=== PATIENT | female | born 1975 | race Caucasian/White ===

== ENCOUNTER 2018-01-21 18:00 | Inpatient (IN) | payer OTHER ==
--- NOTE | 2018-01-21 19:27 | HP ---
CIWA Score - CIWA Score Nausea/Vomitin Muscle Tremors: 3 Anxiety: 3 Agitation: 3 Paroxysmal Sweats: 2 Orientation: 0-Oriented Tacttile Disturbances: 2-Mild Itch/Numbness/Burn Auditory Disturbances: 2-Mild Harshness/Frighten Visual Disturbances: 1-Very Mild Sensitivity Headache: 2-Mild CIWA-Ar Total Score: 21 Admission ROS BHS - HPI Chief Complaint: i need help to stop drinking alcohol and marijuana Allergies/Adverse Reactions: Allergies Allergy/AdvReac Type Severity Reaction Status Date / Time No Known Drug Allergies Allergy Verified 01/21/18 19:30 canned pears Allergy Intermediate Swelling Uncoded 01/21/18 19:30 History of Present Illness: this 42 years old female with alcohol and marijuana dependence,seeking detox, withdrawal symptom,last detox 06/16/14 to 06/08/14 seizure last 01/14/18 s/p craniotomy post trauma in 2013 [facility] longest period of sobriety 8 months nicotine dependence Exam Limitations: No Limitations - Review of Systems Constitutional: Loss of Appetite, Malaise, Night Sweats, Changes in sleep EENT: reports: Nose Congestion, Other (s/p craniotomy right post trauma) Respiratory: reports: No Symptoms reported Cardiac: reports: No Symptoms Reported GI: reports: Nausea, Poor Fluid Intake, Abdominal cramping : reports: No Symptoms Reported Musculoskeletal: reports: Back Pain, Muscle Pain Integumentary: reports: Dryness Neuro: reports: Headache, Tremors Endocrine: reports: No Symptoms Reported Hematology: reports: No Symptoms Reported Psychiatric: reports: No Sypmtoms Reported, Judgement Intact, Mood/Affect Appropiate, Orientated x3 Patient History - Patient Medical History Hx Anemia: No Hx Asthma: No Hx Chronic Obstructive Pulmonary Disease (COPD): No Hx Cancer: No Hx Cardiac Disorders: No Hx Hypertension: No Hx Hypercholesterolemia: No Hx Pacemaker: No HX Cerebrovascular Accident: No Hx Seizures: Yes (LAST SEIZURE WAS 1 WK AGO) Hx Dementia: No Hx Diabetes: No Hx Gastrointestinal Disorders: No Hx Liver Disease: No Hx Genitourinary Disorders: No Hx Sexually Transmitted Disorders: No Hx Renal Disease (ESRD): No Hx Human Immunodeficiency Virus (HIV): No (last 2007 negative) Hx Hepatitis C: No Hx Depression: Yes (no med,did not want to wait) Hx Suicide Attempt: No Hx Bipolar Disorder: No Hx Schizophrenia: No - Patient Surgical History Past Surgical History: Yes Other Surgical History: SURGERY FOR SDH X 2 SEC. TO FALL IN 01/2013 Anesthesia Reaction: No - PPD History Previous Implant?: Yes Documented Results: Negative w/o proof Implanted On Prior [facility] Admission?: Yes Date: 06/18/14 Results: 0 MM PPD to be Administered?: Yes - Reproductive History Patient is a Female of Child Bearing Age (11 -55 yrs old): Yes Last Menstrual Period: 01/09/18 Patient : No - Smoking Cessation Smoking history: Current every day smoker Have you smoked in the past 12 months: Yes Aproximately how many cigarettes per day: 20 Hx Chewing Tobacco Use: No Initiated information on smoking cessation: Yes 'Breaking Loose' booklet given: 01/21/18 - Substance & Tx. History Hx Alcohol Use: Yes Hx Substance Use: Yes Substance Use Type: Alcohol, Marijuana Hx Substance Use Treatment: Yes ([facility]) - Substances Abused Alcohol Route: Oral Frequency: Daily Amount used: BOTTLE WINE, Age of first use: 20 Date of Last Use: 01/20/18 Marijuana/Hashish Route: Smoking Frequency: 1-2 times per week Amount used: $20 Age of first use: 20 Date of Last Use: 01/20/18 Family Disease History - Family Disease History Family Disease History: Diabetes: Grandparent, Heart Disease: Grandparent, Other : Father (alcohol) Admission Physical Exam BHS - Vital Signs Vital Signs: Vital Signs Temperature 97.9 F 01/22/18 06:00 Pulse Rate 88 01/22/18 06:30 Respiratory Rate 16 01/22/18 06:30 Blood Pressure 132/92 01/22/18 06:00 O2 Sat by Pulse Oximetry (%) - Physical General Appearance: Yes: Moderate Distress, Tremorous, Irritable, Sweating, Anxious HEENTM: Yes: JEWEL, Pharynx Normal, Other (s/p craniotomy right x 2 in 2012) Respiratory: Yes: Lungs Clear, Normal Breath Sounds, No Respiratory Distress Neck: Yes: Within Normal Limits, Supple, Trachea in good position Breast: Yes: Breast Exam Deferred Cardiology: Yes: Within Normal Limits, Regular Rhythm, Regular Rate, S1, S2 Abdominal: Yes: Within Normal Limits, Normal Bowel Sounds, Non Tender, Flat Genitourinary: Yes: Within Normal Limits Back: Yes: Muscle Spasm Musculoskeletal: Yes: full range of Motion, Back pain Extremities: Yes: Tremors Neurological: Yes: cilnical scientist II-XII NML intact, Alert, Motor Strength 5/5 Integumentary: Yes: Dry Lymphatic: Yes: Within Normal Limits - Diagnostic (1) Alcohol dependence with uncomplicated withdrawal Current Visit: Yes Status: Acute (2) Alcohol dependence with uncomplicated intoxication Current Visit: Yes Status: Acute (3) Cannabis dependence Current Visit: No Status: Acute (4) Seizure disorder Current Visit: No Status: Acute (5) Status post craniotomy Current Visit: Yes Status: Acute (6) Nicotine dependence Current Visit: Yes Status: Acute Cleared for Admission S - Detox or Rehab [facility] Level of Care: Medically Managed Detox Regimen/Protocol: Librium [facility] Breath Alcohol Content Breath Alcohol Content: 0
[2018-01-21] MEDS ORDERED: LOPERAMIDE HCL 2 MG CAPSULE PO PRN (19:39)
[2018-01-21] MEDS ORDERED: MENTHOL/PHENOL 1 EACH UD MM PRN (19:39)
[2018-01-21] MEDS ORDERED: MAGNESIUM HYDROX 2400MG/30ML ORAL SUSPENSION 30 ML CUP PO PRN (19:39)
[2018-01-21] MEDS ORDERED: hydrOXYzine PAMOATE 25 MG CAPSULE (FP) PO PRN (19:39)
[2018-01-21] MEDS ORDERED: P-EPHED 60MG/TRIPROLIDI 2.5MG TABLET PO PRN (19:39)
[2018-01-21] MEDS ORDERED: chlordiazePOXIDE HCL 25 MG CAPSULE PO ONE (19:39)
[2018-01-21] MEDS ORDERED: IBUPROFEN 400 MG TABLET (FP) PO PRN (19:39)
[2018-01-21] MEDS ORDERED: ACETAMINOPHEN 325 MG TABLET (FP) PO PRN (19:39)
[2018-01-21] MEDS ORDERED: chlordiazePOXIDE HCL 25 MG CAPSULE PO PRN (19:39)
[2018-01-21] MEDS ORDERED: MAG HYDROX/AL HYDROX/SIMETH 30 ML UNIT-DOSE CUP PO PRN (19:39)
[2018-01-21] MEDS ORDERED: guaiFENesin/D-METHORPHAN HB 10 ML UNIT-DOSE CUPS PO PRN (19:39)
[2018-01-21] MEDS ORDERED: MAGNESIUM CITRATE 300 ML BOTTLE PO PRN (19:39)
[2018-01-21 19:45] VITALS: BMI 22.1
[2018-01-21] MEDS: levETIRAcetam 500 MG TABLET (FP) PO SCH (21:32)
[2018-01-21] MEDS: THIAMINE HCL 100 MG TABLET (FP) PO SCH (21:33)
[2018-01-21] MEDS: GABAPENTIN 400 MG CAPSULE (FP) PO SCH (21:33)
[2018-01-21] MEDS: chlordiazePOXIDE HCL 25 MG CAPSULE PO SCH (22:49)
[2018-01-22] MEDS: chlordiazePOXIDE HCL 25 MG CAPSULE PO SCH ×4 (05:52→22:20)
[2018-01-22] MEDS: GABAPENTIN 400 MG CAPSULE (FP) PO SCH ×3 (05:53→22:20)
[2018-01-22 09:51] LABS: HEMATOCRIT 35.9 % (32.4-45.2); HEMOGLOBIN 12.9 GM/dL (10.7-15.3); MCH 34.1 pg (25.7-33.7); MCHC 35.8 g/dl (32.0-36.0); MEAN CELL VOLUME 95.1 fl (80-96); MEAN PLT VOLUME 7.8 fl (7.5-11.1); PLATELET COUNT 129 K/MM3 (134-434); RBC 3.77 M/mm3 (3.60-5.2); RDW 12.6 % (11.6-15.6); WHITE BLOOD COUNT 3.4 K/mm3 (4.0-10.0)
--- NOTE | 2018-01-22 09:51 | PN ---
S CIWA - CIWA Score Nausea/Vomitin-Mild Nausea/No Vomiting Muscle Tremors: 4-Moderate,w/Arms Extend Anxiety: 4-Mod. Anxious/Guarded Agitation: 4-Moderately Restless Paroxysmal Sweats: 1-Minimal Palms Moist Orientation: 0-Oriented Tacttile Disturbances: 2-Mild Itch/Numbness/Burn Auditory Disturbances: 0-None Visual Disturbances: 0-None Headache: 1-Very Mild CIWA-Ar Total Score: 17 BHS Progress Note (SOAP) Subjective: sweat tremor gi distress trouble sleep at night Objective: 01/22/18 09:50 Vital Signs Temperature 97.9 F 01/22/18 06:00 Pulse Rate 84 01/22/18 08:00 Respiratory Rate 18 01/22/18 08:00 Blood Pressure 132/92 01/22/18 06:00 O2 Sat by Pulse Oximetry (%) lab not available at this time Assessment: 01/22/18 09:50 withdrawal sx Plan: continue detox
[2018-01-22 09:52] LABS: URINE APPEARANCE CLOUDY; URINE BILIRUBIN NEGATIVE (<2.0 mg/dL); URINE BLOOD NEGATIVE (NEGATIVE); URINE COLOR DKYELLOW; URINE GLUCOSE (UA) NEGATIVE (NEGATIVE); URINE KETONE NEGATIVE (NEGATIVE); URINE LEUK ESTERASE NEGATIVE (NEGATIVE); URINE NITRITE NEGATIVE (NEGATIVE); URINE UROBILINOGEN 4.0 E.U/dl mg/dL (0.2-1.0)
[2018-01-22 10:07] LABS: ALBUMIN 3.7 g/dl (3.4-5.0); ANION GAP 12 (8-16); BLOOD UREA NITROGEN 14 mg/dL (7-18); CHLORIDE 95 mmol/L (98-107); CO2 29 mmol/L (21-32); GLUCOSE,RANDOM 114 mg/dL (74-106); POTASSIUM 3.3 mmol/L (3.5-5.1); SODIUM 136 mmol/L (136-145)
[2018-01-22 10:11] LABS: ALK PHOS 54 U/L (45-117); BILIRUBIN,TOTAL 0.8 mg/dL (0.2-1.0); CREATININE 0.8 mg/dL (0.55-1.02); SGOT/AST 48 U/L (15-37); SGPT/ALT 24 U/L (12-78); TOT PROT 6.6 g/dl (6.4-8.2)
[2018-01-22 10:18] LABS: URINE PROTEIN 1+ (NEGATIVE)
[2018-01-22] MEDS: levETIRAcetam 500 MG TABLET (FP) PO SCH ×2 (10:18→22:20)
[2018-01-22] MEDS: NICOTINE 21 MG/24 HOURS TOPICAL PATCH TD SCH (10:19)
[2018-01-22] MEDS: PRENATAL VITAMINS W/ FOLIC ACID TABLET (FP) PO SCH (10:20)
[2018-01-22 10:23] LABS: EPI CELLS MODERATE /HPF (FEW); URINE BACTERIA RARE /hpf (NONE SEEN); URINE MUCUS RARE
--- NOTE | 2018-01-22 12:29 | EKG ---
Test Reason : Blood Pressure : / mmHG Vent. Rate : 080 BPM Atrial Rate : 080 BPM P-R Int : 128 ms QRS Dur : 082 ms QT Int : 382 ms P-R-T Axes : 067 038 035 degrees QTc Int : 440 ms NORMAL SINUS RHYTHM POSSIBLE LEFT ATRIAL ENLARGEMENT NONSPECIFIC ST ABNORMALITY ABNORMAL ECG NO PREVIOUS ECGS AVAILABLE Confirmed by RADHA WELSH, CHAD ([id number]) on 01/22/2018 12:28:38 PM Referred By: Jerry Cobian Confirmed By:CHAD GARCIA MD
--- NOTE | 2018-01-22 18:48 | PN ---
[facility] Progress Note Note: Laboratory Last Values WBC 3.4 K/mm3 (4.0-10.0) L 01/22/18 07:00 RBC 3.77 M/mm3 (3.60-5.2) 01/22/18 07:00 Hgb 12.9 GM/dL (10.7-15.3) 01/22/18 07:00 Hct 35.9 % (32.4-45.2) 01/22/18 07:00 MCV 95.1 fl (80-96) 01/22/18 07:00 MCH 34.1 pg (25.7-33.7) H 01/22/18 07:00 MCHC 35.8 g/dl (32.0-36.0) 01/22/18 07:00 RDW 12.6 % (11.6-15.6) 01/22/18 07:00 Plt Count 129 K/MM3 (134-434) L 01/22/18 07:00 MPV 7.8 fl (7.5-11.1) 01/22/18 07:00 Sodium 136 mmol/L (136-145) 01/22/18 07:00 Potassium 3.3 mmol/L (3.5-5.1) L 01/22/18 07:00 Chloride 95 mmol/L (98-107) L 01/22/18 07:00 Carbon Dioxide 29 mmol/L (21-32) 01/22/18 07:00 Anion Gap 12 (8-16) 01/22/18 07:00 BUN 14 mg/dL (7-18) 01/22/18 07:00 Creatinine 0.8 mg/dL (0.55-1.02) 01/22/18 07:00 Creat Clearance w eGFR > 60 (>60) 01/22/18 07:00 Random Glucose 114 mg/dL (74-106) H 01/22/18 07:00 Calcium 9.0 mg/dL (8.5-10.1) 01/22/18 07:00 Total Bilirubin 0.8 mg/dL (0.2-1.0) 01/22/18 07:00 AST 48 U/L (15-37) H 01/22/18 07:00 ALT 24 U/L (12-78) 01/22/18 07:00 Alkaline Phosphatase 54 U/L (45-117) 01/22/18 07:00 Total Protein 6.6 g/dl (6.4-8.2) 01/22/18 07:00 Albumin 3.7 g/dl (3.4-5.0) 01/22/18 07:00 Urine Color Dkyellow 01/22/18 07:00 Urine Appearance Cloudy 01/22/18 07:00 Urine pH 7.0 (5.0-8.0) 01/22/18 07:00 Ur Specific [place] 1.031 (1.001-1.035) 01/22/18 07:00 Urine Protein 1+ (NEGATIVE) H 01/22/18 07:00 Urine Glucose (UA) Negative (NEGATIVE) 01/22/18 07:00 Urine Ketones Negative (NEGATIVE) 01/22/18 07:00 Urine Blood Negative (NEGATIVE) 01/22/18 07:00 Urine Nitrite Negative (NEGATIVE) 01/22/18 07:00 Urine Bilirubin Negative (<2.0 mg/dL) 01/22/18 07:00 Urine Urobilinogen 4.0 e.u/dl mg/dL (0.2-1.0) H 01/22/18 07:00 Ur Leukocyte Esterase Negative (NEGATIVE) 01/22/18 07:00 Urine WBC (Auto) 7 /hpf (3-5) 01/22/18 07:00 Urine RBC (Auto) <1 /hpf (0-3) 01/22/18 07:00 Ur Epithelial Cells Moderate /HPF (FEW) 01/22/18 07:00 Urine Bacteria Rare /hpf (NONE SEEN) 01/22/18 07:00 Urine Mucus Rare 01/22/18 07:00 RPR Titer Nonreactive (NONREACTIVE) 01/22/18 07:00 Labs review Potassium PO order Repeat Potassium tomorrow AM
[2018-01-22] MEDS: NICOTINE POLACRILEX 4 MG GUM BUC PRN (20:14)
[2018-01-22] MEDS: MELATONIN 5 MG TABLETS PO PRN (22:19)
[2018-01-22] MEDS: THIAMINE HCL 100 MG TABLET (FP) PO SCH (22:19)
[2018-01-22] MEDS: POTASSIUM CHLORIDE TABS 20 MEQ TABLET.ER (FP) PO SCH (22:20)
[2018-01-23] MEDS: chlordiazePOXIDE HCL 25 MG CAPSULE PO SCH ×3 (05:58→19:04)
[2018-01-23] MEDS: GABAPENTIN 400 MG CAPSULE (FP) PO SCH ×3 (05:58→22:10)
[2018-01-23] MEDS ORDERED: NICOTINE 21 MG/24 HOURS TOPICAL PATCH TD SCH (10:00)
[2018-01-23] MEDS: PRENATAL VITAMINS W/ FOLIC ACID TABLET (FP) PO SCH (10:46)
[2018-01-23] MEDS: POTASSIUM CHLORIDE TABS 20 MEQ TABLET.ER (FP) PO SCH (10:46)
[2018-01-23] MEDS: levETIRAcetam 500 MG TABLET (FP) PO SCH ×2 (10:46→22:10)
[2018-01-23] MEDS: NICOTINE 21 MG/24 HOURS TOPICAL PATCH TD SCH (10:47)
[2018-01-23] MEDS: NICOTINE POLACRILEX 4 MG GUM BUC PRN (10:50)
--- NOTE | 2018-01-23 11:05 | PN ---
[facility] CIWA - CIWA Score Nausea/Vomitin-Mild Nausea/No Vomiting Muscle Tremors: 4-Moderate,w/Arms Extend Anxiety: 4-Mod. Anxious/Guarded Agitation: 4-Moderately Restless Paroxysmal Sweats: 1-Minimal Palms Moist Orientation: 0-Oriented Tacttile Disturbances: 0-None Auditory Disturbances: 0-None Visual Disturbances: 0-None Headache: 0-None Present CIWA-Ar Total Score: 14 BHS Progress Note (SOAP) Subjective: sweat tremor anxiety restlessness trouble sleep at night Objective: 01/23/18 11:07 Vital Signs Temperature 97.8 F 01/23/18 10:37 Pulse Rate 100 H 01/23/18 10:37 Respiratory Rate 18 01/23/18 10:37 Blood Pressure 141/78 01/23/18 10:37 O2 Sat by Pulse Oximetry (%) Laboratory Last Values WBC 3.4 K/mm3 (4.0-10.0) L 01/22/18 07:00 RBC 3.77 M/mm3 (3.60-5.2) 01/22/18 07:00 Hgb 12.9 GM/dL (10.7-15.3) 01/22/18 07:00 Hct 35.9 % (32.4-45.2) 01/22/18 07:00 MCV 95.1 fl (80-96) 01/22/18 07:00 MCH 34.1 pg (25.7-33.7) H 01/22/18 07:00 MCHC 35.8 g/dl (32.0-36.0) 01/22/18 07:00 RDW 12.6 % (11.6-15.6) 01/22/18 07:00 Plt Count 129 K/MM3 (134-434) L 01/22/18 07:00 MPV 7.8 fl (7.5-11.1) 01/22/18 07:00 Sodium 136 mmol/L (136-145) 01/22/18 07:00 Potassium 3.8 mmol/L (3.5-5.1) 01/23/18 07:00 Chloride 95 mmol/L (98-107) L 01/22/18 07:00 Carbon Dioxide 29 mmol/L (21-32) 01/22/18 07:00 Anion Gap 12 (8-16) 01/22/18 07:00 BUN 14 mg/dL (7-18) 01/22/18 07:00 Creatinine 0.8 mg/dL (0.55-1.02) 01/22/18 07:00 Creat Clearance w eGFR > 60 (>60) 01/22/18 07:00 Random Glucose 114 mg/dL (74-106) H 01/22/18 07:00 Calcium 9.0 mg/dL (8.5-10.1) 01/22/18 07:00 Total Bilirubin 0.8 mg/dL (0.2-1.0) 01/22/18 07:00 AST 48 U/L (15-37) H 01/22/18 07:00 ALT 24 U/L (12-78) 01/22/18 07:00 Alkaline Phosphatase 54 U/L (45-117) 01/22/18 07:00 Total Protein 6.6 g/dl (6.4-8.2) 01/22/18 07:00 Albumin 3.7 g/dl (3.4-5.0) 01/22/18 07:00 Urine Color Dkyellow 01/22/18 07:00 Urine Appearance Cloudy 01/22/18 07:00 Urine pH 7.0 (5.0-8.0) 01/22/18 07:00 Ur Specific [place] 1.031 (1.001-1.035) 01/22/18 07:00 Urine Protein 1+ (NEGATIVE) H 01/22/18 07:00 Urine Glucose (UA) Negative (NEGATIVE) 01/22/18 07:00 Urine Ketones Negative (NEGATIVE) 01/22/18 07:00 Urine Blood Negative (NEGATIVE) 01/22/18 07:00 Urine Nitrite Negative (NEGATIVE) 01/22/18 07:00 Urine Bilirubin Negative (<2.0 mg/dL) 01/22/18 07:00 Urine Urobilinogen 4.0 e.u/dl mg/dL (0.2-1.0) H 01/22/18 07:00 Ur Leukocyte Esterase Negative (NEGATIVE) 01/22/18 07:00 Urine WBC (Auto) 7 /hpf (3-5) 01/22/18 07:00 Urine RBC (Auto) <1 /hpf (0-3) 01/22/18 07:00 Ur Epithelial Cells Moderate /HPF (FEW) 01/22/18 07:00 Urine Bacteria Rare /hpf (NONE SEEN) 01/22/18 07:00 Urine Mucus Rare 01/22/18 07:00 RPR Titer Nonreactive (NONREACTIVE) 01/22/18 07:00 lab noted Assessment: 01/23/18 11:07 withdrawal sx Plan: continue detox
[2018-01-23] MEDS: chlordiazePOXIDE 5 MG CAPSULE PO SCH (22:10)
[2018-01-23] MEDS: THIAMINE HCL 100 MG TABLET (FP) PO SCH (22:11)
[2018-01-23] MEDS: MELATONIN 5 MG TABLETS PO PRN (22:14)
[2018-01-23] MEDS: MINERAL OIL/PETROLAT/WATER TOPICAL CREAM 113 GM JAR TP SCH (22:54)
[2018-01-24] MEDS: GABAPENTIN 400 MG CAPSULE (FP) PO SCH ×3 (05:21→22:05)
[2018-01-24] MEDS: chlordiazePOXIDE 5 MG CAPSULE PO SCH ×3 (05:21→17:09)
--- NOTE | 2018-01-24 09:48 | PN ---
BHS Progress Note (SOAP) Subjective: feeling better no tremor less sweat slept throughout the night Objective: 01/24/18 09:48 Vital Signs Temperature 98.2 F 01/24/18 09:29 Pulse Rate 91 H 01/24/18 09:29 Respiratory Rate 18 01/24/18 09:29 Blood Pressure 113/71 01/24/18 09:29 O2 Sat by Pulse Oximetry (%) Laboratory Last Values WBC 3.4 K/mm3 (4.0-10.0) L 01/22/18 07:00 RBC 3.77 M/mm3 (3.60-5.2) 01/22/18 07:00 Hgb 12.9 GM/dL (10.7-15.3) 01/22/18 07:00 Hct 35.9 % (32.4-45.2) 01/22/18 07:00 MCV 95.1 fl (80-96) 01/22/18 07:00 MCH 34.1 pg (25.7-33.7) H 01/22/18 07:00 MCHC 35.8 g/dl (32.0-36.0) 01/22/18 07:00 RDW 12.6 % (11.6-15.6) 01/22/18 07:00 Plt Count 129 K/MM3 (134-434) L 01/22/18 07:00 MPV 7.8 fl (7.5-11.1) 01/22/18 07:00 Sodium 136 mmol/L (136-145) 01/22/18 07:00 Potassium 3.8 mmol/L (3.5-5.1) 01/23/18 07:00 Chloride 95 mmol/L (98-107) L 01/22/18 07:00 Carbon Dioxide 29 mmol/L (21-32) 01/22/18 07:00 Anion Gap 12 (8-16) 01/22/18 07:00 BUN 14 mg/dL (7-18) 01/22/18 07:00 Creatinine 0.8 mg/dL (0.55-1.02) 01/22/18 07:00 Creat Clearance w eGFR > 60 (>60) 01/22/18 07:00 Random Glucose 114 mg/dL (74-106) H 01/22/18 07:00 Calcium 9.0 mg/dL (8.5-10.1) 01/22/18 07:00 Total Bilirubin 0.8 mg/dL (0.2-1.0) 01/22/18 07:00 AST 48 U/L (15-37) H 01/22/18 07:00 ALT 24 U/L (12-78) 01/22/18 07:00 Alkaline Phosphatase 54 U/L (45-117) 01/22/18 07:00 Total Protein 6.6 g/dl (6.4-8.2) 01/22/18 07:00 Albumin 3.7 g/dl (3.4-5.0) 01/22/18 07:00 Urine Color Dkyellow 01/22/18 07:00 Urine Appearance Cloudy 01/22/18 07:00 Urine pH 7.0 (5.0-8.0) 01/22/18 07:00 Ur Specific [place] 1.031 (1.001-1.035) 01/22/18 07:00 Urine Protein 1+ (NEGATIVE) H 01/22/18 07:00 Urine Glucose (UA) Negative (NEGATIVE) 01/22/18 07:00 Urine Ketones Negative (NEGATIVE) 01/22/18 07:00 Urine Blood Negative (NEGATIVE) 01/22/18 07:00 Urine Nitrite Negative (NEGATIVE) 01/22/18 07:00 Urine Bilirubin Negative (<2.0 mg/dL) 01/22/18 07:00 Urine Urobilinogen 4.0 e.u/dl mg/dL (0.2-1.0) H 01/22/18 07:00 Ur Leukocyte Esterase Negative (NEGATIVE) 01/22/18 07:00 Urine WBC (Auto) 7 /hpf (3-5) 01/22/18 07:00 Urine RBC (Auto) <1 /hpf (0-3) 01/22/18 07:00 Ur Epithelial Cells Moderate /HPF (FEW) 01/22/18 07:00 Urine Bacteria Rare /hpf (NONE SEEN) 01/22/18 07:00 Urine Mucus Rare 01/22/18 07:00 RPR Titer Nonreactive (NONREACTIVE) 01/22/18 07:00 lab noted Assessment: 01/24/18 09:49 mild withdrawal sx K+ withing normal limited Plan: medically supervised detox discontinue K+
[2018-01-24] MEDS: levETIRAcetam 500 MG TABLET (FP) PO SCH ×2 (10:09→22:06)
[2018-01-24] MEDS: NICOTINE 21 MG/24 HOURS TOPICAL PATCH TD SCH (10:10)
[2018-01-24] MEDS: PRENATAL VITAMINS W/ FOLIC ACID TABLET (FP) PO SCH (10:10)
[2018-01-24] MEDS: NICOTINE POLACRILEX 4 MG GUM BUC PRN (12:58)
[2018-01-24] MEDS ORDERED: BACLOFEN 10 MG TABLET (FP) PO ONE (13:30)
[2018-01-24] MEDS: MELATONIN 5 MG TABLETS PO PRN (22:05)
[2018-01-24] MEDS: MINERAL OIL/PETROLAT/WATER TOPICAL CREAM 113 GM JAR TP SCH (22:06)
[2018-01-24] MEDS: chlordiazePOXIDE HCL 10 MG CAPSULE PO SCH (22:06)
[2018-01-24] MEDS: THIAMINE HCL 100 MG TABLET (FP) PO SCH (22:06)
[2018-01-24] MEDS: CYCLOBENZAPRINE HCL 5 MG TABLET PO PRN (22:06)
[2018-01-25] MEDS: chlordiazePOXIDE HCL 10 MG CAPSULE PO SCH (05:48)
[2018-01-25] MEDS: GABAPENTIN 400 MG CAPSULE (FP) PO SCH (05:48)
[2018-01-25 08:40] VITALS: BP 98/58; PULSE 69; TEMP 97.5
--- NOTE | 2018-01-25 09:35 | DS ---
[facility] Detox Discharge Summary Admission Date: 01/21/18 Discharge Date: 01/25/18 - History Present History: Alcohol Dependence Additional Comments: 42 years old female admitted on 01/21/18 for alcohol withdrawal sx completed alcohol detox regimen tolerated well denies alcohol withdrawal sx alert oriented x 3 no acute distress follow up with primary care provider to address medical and addiction problem - Physical Exam Results Vital Signs: Vital Signs Temperature 97.5 F L 01/25/18 04:00 Pulse Rate 69 01/25/18 04:00 Respiratory Rate 18 01/25/18 04:00 Blood Pressure 98/58 01/25/18 04:00 O2 Sat by Pulse Oximetry (%) Pertinent Admission Physical Exam Findings: withdrawal sx Vital Signs Temperature 97.5 F L 01/25/18 04:00 Pulse Rate 69 01/25/18 04:00 Respiratory Rate 18 01/25/18 04:00 Blood Pressure 98/58 01/25/18 04:00 O2 Sat by Pulse Oximetry (%) Laboratory Last Values WBC 3.4 K/mm3 (4.0-10.0) L 01/22/18 07:00 RBC 3.77 M/mm3 (3.60-5.2) 01/22/18 07:00 Hgb 12.9 GM/dL (10.7-15.3) 01/22/18 07:00 Hct 35.9 % (32.4-45.2) 01/22/18 07:00 MCV 95.1 fl (80-96) 01/22/18 07:00 MCH 34.1 pg (25.7-33.7) H 01/22/18 07:00 MCHC 35.8 g/dl (32.0-36.0) 01/22/18 07:00 RDW 12.6 % (11.6-15.6) 01/22/18 07:00 Plt Count 129 K/MM3 (134-434) L 01/22/18 07:00 MPV 7.8 fl (7.5-11.1) 01/22/18 07:00 Sodium 136 mmol/L (136-145) 01/22/18 07:00 Potassium 3.8 mmol/L (3.5-5.1) 01/23/18 07:00 Chloride 95 mmol/L (98-107) L 01/22/18 07:00 Carbon Dioxide 29 mmol/L (21-32) 01/22/18 07:00 Anion Gap 12 (8-16) 01/22/18 07:00 BUN 14 mg/dL (7-18) 01/22/18 07:00 Creatinine 0.8 mg/dL (0.55-1.02) 01/22/18 07:00 Creat Clearance w eGFR > 60 (>60) 01/22/18 07:00 Random Glucose 114 mg/dL (74-106) H 01/22/18 07:00 Calcium 9.0 mg/dL (8.5-10.1) 01/22/18 07:00 Total Bilirubin 0.8 mg/dL (0.2-1.0) 01/22/18 07:00 AST 48 U/L (15-37) H 01/22/18 07:00 ALT 24 U/L (12-78) 01/22/18 07:00 Alkaline Phosphatase 54 U/L (45-117) 01/22/18 07:00 Total Protein 6.6 g/dl (6.4-8.2) 01/22/18 07:00 Albumin 3.7 g/dl (3.4-5.0) 01/22/18 07:00 Urine Color Dkyellow 01/22/18 07:00 Urine Appearance Cloudy 01/22/18 07:00 Urine pH 7.0 (5.0-8.0) 01/22/18 07:00 Ur Specific [place] 1.031 (1.001-1.035) 01/22/18 07:00 Urine Protein 1+ (NEGATIVE) H 01/22/18 07:00 Urine Glucose (UA) Negative (NEGATIVE) 01/22/18 07:00 Urine Ketones Negative (NEGATIVE) 01/22/18 07:00 Urine Blood Negative (NEGATIVE) 01/22/18 07:00 Urine Nitrite Negative (NEGATIVE) 01/22/18 07:00 Urine Bilirubin Negative (<2.0 mg/dL) 01/22/18 07:00 Urine Urobilinogen 4.0 e.u/dl mg/dL (0.2-1.0) H 01/22/18 07:00 Ur Leukocyte Esterase Negative (NEGATIVE) 01/22/18 07:00 Urine WBC (Auto) 7 /hpf (3-5) 01/22/18 07:00 Urine RBC (Auto) <1 /hpf (0-3) 01/22/18 07:00 Ur Epithelial Cells Moderate /HPF (FEW) 01/22/18 07:00 Urine Bacteria Rare /hpf (NONE SEEN) 01/22/18 07:00 Urine Mucus Rare 01/22/18 07:00 Levetiracetam 36.6 MCG/ML (10.0-40.0) 01/22/18 07:00 RPR Titer Nonreactive (NONREACTIVE) 01/22/18 07:00 lab noted - Treatment Hospital Course: Detox Protocol Followed, Detoxed Safely, Responded well, Discharged Condition Good, Rehab Referral Accepted Patient has Accepted a Rehab Referral to: [facility] - Medication Discharge Medications: Ambulatory Orders levETIRAcetam [Keppra -] 1,500 mg PO BID 01/21/18 Gabapentin 800 mg PO TID #120 tablet 01/24/18 levETIRAcetam [Keppra -] 1,500 mg PO BID #60 tablet 01/24/18 Baclofen 10 mg PO Q8H PRN #120 tablet 01/25/18 - Diagnosis (1) Alcohol dependence with uncomplicated withdrawal Current Visit: Yes Status: Acute (2) Nicotine dependence Current Visit: Yes Status: Acute Qualifiers: Nicotine product type: cigarettes Substance use status: in withdrawal Qualified Code(s): F17.213 - Nicotine dependence, cigarettes, with withdrawal (3) Seizure disorder Current Visit: Yes Status: Chronic - AMA Did Patient Leave Against Medical Advice: No
[2018-01-25] MEDS: CYCLOBENZAPRINE HCL 5 MG TABLET PO PRN (09:36)
== END 2018-01-25 09:20 | disposition home or self-care (01) | DRG 776 ==
LOC: YASAS 18:00 → Y6N 19:26
PROVIDERS: ADMIT Internal Medicine; ATTEND Internal Medicine
PROC: HZ2ZZZZ Detoxification Services for Substance Abuse Treatment (ICD-10-PCS; principal; 2018-01-21)
DX: F12.20 Cannabis dependence, uncomplicated (principal); F17.213 Nicotine dependence, cigarettes, with withdrawal; F32.9 Major depressive disorder, single episode, unspecified; G40.909 Epilepsy, unspecified, not intractable, without status epilepticus
CPT/HCPCS: 36415; 80053; 81003; 81015; 84132; 85027; 86593; 93005; 93010; J0475